=== PATIENT | female | born 1930 | race African-American/Black ===

== ENCOUNTER 2017-07-03 12:34 | Emergency (ER) | payer MEDICARE, MEDICAID ==
[~2017-07-03] VITALS: Ht 167.6 cm; Wt 77.0 kg
[~2017-07-03 12:34] MED LIST: ASA PO; CLOP75TA16 PO; FEMA25; NIFE20CA PO; OMEG1CAP17; PRAVASTATIN PO
[2017-07-03 15:15] VITALS: BP 129/72
== END 2017-07-03 19:28 | disposition home or self-care (01) ==
LOC: ER 13:50
DX: S92.351A Displaced fracture of fifth metatarsal bone, right foot, initial encounter for closed fracture (principal); M85.80 Other specified disorders of bone density and structure, unspecified site; W01.0XXA Fall on same level from slipping, tripping and stumbling without subsequent striking against object, initial encounter; Y93.01 Activity, walking, marching and hiking; Y99.8 Other external cause status; Y92.89 Other specified places as the place of occurrence of the external cause
CPT/HCPCS: 29515; 73630; 73700; 99284

== ENCOUNTER 2018-01-24 09:11 | Emergency (ER) | payer MEDICARE, MEDICAID ==
[~2018-01-24] VITALS: Ht 170.2 cm; Wt 75.0 kg
[2018-01-24] MEDS ORDERED: ACETAMINOPHEN 325MG TABLET PO ONE (11:30)
[2018-01-24] MEDS ORDERED: TRAMADOL 50MG TABLET PO ONE (12:00)
[2018-01-24 14:40] VITALS: BP 140/77
== END 2018-01-24 15:01 | disposition home or self-care (01) ==
LOC: ER 09:11
DX: S32.020A Wedge compression fracture of second lumbar vertebra, initial encounter for closed fracture (principal); M25.551 Pain in right hip; M25.552 Pain in left hip; W19.XXXA Unspecified fall, initial encounter; Y93.89 Activity, other specified; Y92.89 Other specified places as the place of occurrence of the external cause; Y99.8 Other external cause status
CPT/HCPCS: 72110; 73522; 99284

== ENCOUNTER 2018-06-06 05:33 | Inpatient (IN) | payer MEDICARE, MEDICAID ==
[~2018-06-06] VITALS: Ht 170.2 cm; Wt 73.2 kg
[2018-06-06] MEDS ORDERED: SODIUM CHLORIDE 0.9% 1,000 ML IV ONE (06:04)
[2018-06-06] MEDS ORDERED: AZITHROMYCIN 500 MG in DEXT 5% WATER 250 ML IV ONE (08:00)
[2018-06-06] MEDS ORDERED: SODIUM CHLORIDE 0.9% 1000ML BAG (SEPSIS BOLUS) IV ONE (08:00)
[2018-06-06] MEDS ORDERED: CEFTRIAXONE 1 G PREMIX 50 ML IV ONE (08:00)
[2018-06-06 08:46] LABS: BASOPHILS % 0.4 % (0.0-2.0); EOSINOPHILS % 0.1 % (0.0-5.0); HEMATOCRIT. 35.4 % (36.0-48.0); HEMOGLOBIN. 11.3 g/dL (12.0-16.0); LYMPHOCYTES % 7.4 % (20.0-50.0); MEAN CORPUSCULAR HEMOGLOBIN 25.8 pg (28.0-32.0); MEAN CORPUSCULAR VOLUME 80.8 fL (81.0-99.0); MEAN PLATELET VOLUME 7.8 fl (7.4-10.4); MONOCYTES % 8.6 % (2.0-8.0); NEUTROPHILS % 83.5 % (40.0-76.0); PLATELET 198 x1000/uL (130-400); RED BLOOD CELL COUNT 4.39 mill/uL (4.2-5.4); RED CELL DISTRIBUTION WIDTH 17.4 % (11.6-14.6)
[2018-06-06 08:53] LABS: CHLORIDE 112 mEq/L (98-107)
[2018-06-06] MEDS ORDERED: ASPIRIN 325MG EC TABLET PO ONE (09:15)
[2018-06-06] MEDS ORDERED: IOHEXOL-350 100 ML BOTTLE ONE (09:55)
[2018-06-06] MEDS ORDERED: ALBUTEROL (0.5%) 2.5MG/0.5ML NEB HHN ONE (11:15)
[2018-06-06 12:18] LABS: BG BASE EXCESS -13.4 mmol/L (-2.0-2.0); BG BILEVEL POS AIRWAY PRESSURE 15/5; BG CARBOXYHEMOGLOBIN 0.3 % (0.5-1.5); BG DEOXYHEMOGLOBIN 9.4 % (0.0-5.0); BG FRACTION INSPIRED OXYGEN 100; BG HCO3 ACT 12.8 mmol/L (22.0-26.0); BG METHEMOGLOBIN 0.3 % (0.0-1.5); BG OXYGEN SATURATION 90.5 % (92.0-98.5); BG PCO2 30.9 mmHg (35.0-45.0); BG PH 7.236 (7.350-7.450); BG PO2 73.1 mmHg (75.0-100.0); BG SAMPLE SITE RIGHT RADIAL; BG TOTAL HEMOGLOBIN 11.5 g/dL (12.0-18.0); BG VENT MODE MASK - BIPAP; BG VENT RATE 16 set
[2018-06-06] MEDS ORDERED: IPRATROPIUM/ALBUTEROL 0.5-3(2.5)MG/3ML NEB HHN PRN (13:30)
[2018-06-06] MEDS ORDERED: FUROSEMIDE 20MG/2ML VIAL IVP SCH (13:45)
[2018-06-06 14:00] VITALS: BP 93/62
[2018-06-06 14:23] VITALS: BP 93/62
[2018-06-06 14:54] LABS: BG BILEVEL POS AIRWAY PRESSURE 15/5; BG CARBOXYHEMOGLOBIN 0.4 % (0.5-1.5); BG DEOXYHEMOGLOBIN 4.9 % (0.0-5.0); BG FRACTION INSPIRED OXYGEN 100; BG HCO3 ACT 15.3 mmol/L (22.0-26.0); BG METHEMOGLOBIN 0.2 % (0.0-1.5); BG OXYGEN SATURATION 95.1 % (92.0-98.5); BG OXYHEMOGLOBIN 94.5 % (94.0-97.0); BG PCO2 28.4 mmHg (35.0-45.0); BG PO2 82.1 mmHg (75.0-100.0); BG SAMPLE SITE RIGHT BRACHIAL; BG TOTAL HEMOGLOBIN 11.6 g/dL (12.0-18.0); BG VENT MODE MASK - BIPAP
[2018-06-06] MEDS ORDERED: ASPIRIN 81MG EC TABLET PO NR (15:30)
[2018-06-06 16:00] VITALS: BP 97/57
[2018-06-06] MEDS: NITROGLYCERIN OINT 1GM/INCH UDPKT TD SCH ×2 (16:00→22:05)
[2018-06-06] MEDS ORDERED: ENOXAPARIN 80MG/0.8ML SYR SUBCUT SCH (16:00)
[2018-06-06 18:11] VITALS: BP 105/67
[2018-06-06] MEDS ORDERED: FUROSEMIDE 40MG/4ML VIAL IVP SCH (18:30)
[2018-06-06 20:00] VITALS: BP 119/85
[2018-06-06] MEDS: IPRATROPIUM/ALBUTEROL 0.5-3(2.5)MG/3ML NEB HHN SCH (20:38)
[2018-06-06] MEDS: BUDESONIDE 0.5MG/2ML NEB HHN SCH (20:38)
[2018-06-06] MEDS ORDERED: OSELTAMIVIR 30MG CAPSULE PO SCH (21:00)
[2018-06-06 21:49] LABS: CLARITY URINE CLEAR (CLEAR); COLOR URINE DARK YELLOW (YELLOW); KETONES URINE NEGATIVE (NEGATIVE); LEUKOCYTE ESTERASE URINE NEGATIVE (NEGATIVE); NITRITE URINE NEGATIVE (NEGATIVE); OCCULT BLOOD URINE 2+ (NEGATIVE); PROTEIN URINE TRACE (NEGATIVE); SPECIFIC GRAVITY URINE 1.045 (1.005-1.030)
[2018-06-06 22:00] VITALS: BP 107/66
[2018-06-07] VITALS: BP 110/58
[2018-06-07] MEDS: ACETYLCYSTEINE 100MG/ML 10% VIAL 4ML INH SCH ×2 (00:39→07:46)
[2018-06-07] MEDS: IPRATROPIUM/ALBUTEROL 0.5-3(2.5)MG/3ML NEB HHN SCH ×3 (00:39→07:45)
[2018-06-07 02:01] VITALS: BP 114/53
[2018-06-07 04:00] VITALS: BP 121/63
[2018-06-07 06:01] VITALS: BP 109/52
[2018-06-07] MEDS: NITROGLYCERIN OINT 1GM/INCH UDPKT TD SCH (06:17)
[2018-06-07 06:28] LABS: HEMATOCRIT. 38.7 % (36.0-48.0); HEMOGLOBIN. 11.9 g/dL (12.0-16.0); MEAN CORPUSCULAR HEMOGLOBIN 25.7 pg (28.0-32.0); MEAN CORPUSCULAR VOLUME 83.6 fL (81.0-99.0); MEAN PLATELET VOLUME 8.2 fl (7.4-10.4); PLATELET 102 x1000/uL (130-400); RED BLOOD CELL COUNT 4.64 mill/uL (4.2-5.4); RED CELL DISTRIBUTION WIDTH 18.3 % (11.6-14.6)
[2018-06-07] MEDS ORDERED: CEFTRIAXONE 1 G PREMIX 50 ML IV SCH (07:00)
[2018-06-07] MEDS: BUDESONIDE 0.5MG/2ML NEB HHN SCH (07:46)
[2018-06-07 08:00] VITALS: BP 119/41
[2018-06-07] MEDS ORDERED: AZITHROMYCIN 500 MG in DEXT 5% WATER 250 ML IV SCH (08:00)
[2018-06-07 08:29] LABS: BG BASE EXCESS -9.3 mmol/L (-2.0-2.0); BG BILEVEL POS AIRWAY PRESSURE 15/5; BG CARBOXYHEMOGLOBIN 0.4 % (0.5-1.5); BG FRACTION INSPIRED OXYGEN 100; BG OXYHEMOGLOBIN 94.6 % (94.0-97.0); BG PCO2 33.1 mmHg (35.0-45.0); BG PH 7.302 (7.350-7.450); BG PO2 85.8 mmHg (75.0-100.0); BG SAMPLE SITE RIGHT RADIAL; BG TOTAL HEMOGLOBIN 12.3 g/dL (12.0-18.0); BG VENT MODE MASK - BIPAP; BG VENT RATE 16 set
[2018-06-07 09:00] VITALS: BP 120/66
[2018-06-07] MEDS ORDERED: CLOPIDOGREL 75MG TABLET PO SCH (09:00)
[2018-06-07 13:47] LABS: PLATELET ESTIMATE DECREASED
== END 2018-06-07 10:30 | disposition expired ==
LOC: ER 05:33 → EDBEDREQTM 06:11 → ENRESERV 09:02 → 3WST 09:21 → EDBEDREQSVC 09:22 → EDBEDREQ 09:22 → ENRESERV 10:20 → CVICU 06-07 09:40
PROVIDERS: ADMIT Internal Medicine; ATTEND Internal Medicine
PROC: 5A09357 Assistance with Respiratory Ventilation, Less than 24 Consecutive Hours, Continuous Positive Airway Pressure (ICD-10-PCS; principal; 2018-06-06)
DX: I21.4 Non-ST elevation (NSTEMI) myocardial infarction (principal); J18.9 Pneumonia, unspecified organism; J96.01 Acute respiratory failure with hypoxia; E43 Unspecified severe protein-calorie malnutrition; J44.0 Chronic obstructive pulmonary disease with (acute) lower respiratory infection; E87.2 Acidosis; R65.10 Systemic inflammatory response syndrome (SIRS) of non-infectious origin without acute organ dysfunction; E78.00 Pure hypercholesterolemia, unspecified; D64.9 Anemia, unspecified; E87.70 Fluid overload, unspecified; K44.9 Diaphragmatic hernia without obstruction or gangrene; N27.0 Small kidney, unilateral; N28.1 Cyst of kidney, acquired; R57.0 Cardiogenic shock; Z66 Do not resuscitate; N18.9 Chronic kidney disease, unspecified; I12.9 Hypertensive chronic kidney disease with stage 1 through stage 4 chronic kidney disease, or unspecified chronic kidney disease; Z60.2 Problems related to living alone; I25.2 Old myocardial infarction; Z79.02 Long term (current) use of antithrombotics/antiplatelets; Z85.3 Personal history of malignant neoplasm of breast; Z90.12 Acquired absence of left breast and nipple
CPT/HCPCS: 36415; 36600; 71045; 71275; 76770; 80048; 82375; 82805; 83605; 83880; 84484; 85379; 87070; 87077; 87186; 87804; 93005; 93306; 94640; 94644; 94660; 96365; 99291; J0456; J0696; J1650; J1940; J7030; J7060; J7608; J7611; J7620; J7626; Q9967; A4315